=== PATIENT | female | born 1955 | race American Indian/Alaskan Native ===

== ENCOUNTER 2017-07-03 16:34 | Emergency (ER) | payer OTHER ==
[~2017-07-03] VITALS: Ht 162.6 cm; Wt 77.1 kg
[~2017-07-03 16:34] MED LIST: AMOXICILLIN500 MG PO; BENADRYL25 MG PO; IBUPROFEN600 MG PO; MULTIVITAMINS1 EAC8 PO; NORCO 5-325 TA1 EACH PO; TRAMADOL HCL50 MG PO; VENTOLIN HFA18 GM INH
[2017-07-03] MEDS ORDERED: GABAPENTIN100 MG PO (17:00)
[2017-07-03] MEDS ORDERED: PREDNISONE20 MG PO (17:00)
--- NOTE | 2017-07-04 17:16 | EKG ---
[facility] [address] [facility] [place] [address] Signed Normal sinus rhythm Right bundle branch block Abnormal ECG No previous ECGs available Confirmed by LISA KENNEY MD ([id number]) on 07/04/2017 5:16:05 PM Electronically Signed By: LISA KENNEY MD 07/04/17 1716 PATIENT NAME: NELSON PAINTING Electrocardiogram DATE OF : 55 PHYSICIAN: LISA KENNEY MD REPORT #: [id number] REPORT IS CONFIDENTIAL AND NOT TO BE RELEASED WITHOUT AUTHORIZATION
== END 2017-07-03 17:44 | disposition home or self-care (01) ==
LOC: ED 16:34
DX: M54.12 Radiculopathy, cervical region (principal); E11.9 Type 2 diabetes mellitus without complications; F17.200 Nicotine dependence, unspecified, uncomplicated; Z88.5 Allergy status to narcotic agent; Z90.710 Acquired absence of both cervix and uterus
CPT/HCPCS: 71020; 93005; 93010; 96374; 96375; 99284; J1100; J1170; J2405